=== PATIENT | male | born 1955 | race Caucasian/White ===

== ENCOUNTER 2017-05-02 07:29 | Outpatient (CLI) | payer OTHER | END 2017-05-02 07:41 | disposition home or self-care (01) | LOC: LAB 07:29 | DX: I10 Essential (primary) hypertension (principal); N40.0 Benign prostatic hyperplasia without lower urinary tract symptoms; Z12.5 Encounter for screening for malignant neoplasm of prostate; E78.2 Mixed hyperlipidemia; Z12.11 Encounter for screening for malignant neoplasm of colon ==

== ENCOUNTER 2020-05-21 10:26 | Outpatient (CLI) | payer OTHER | END 2020-05-21 10:35 | disposition home or self-care (01) | LOC: SONOGRAMA 10:26 | PROVIDERS: ATTEND Pathology Anatomic Pathology & Clinical Pathology | DX: E07.89 Other specified disorders of thyroid (principal) ==